=== PATIENT | female | born 1945 | race Caucasian/White ===

== ENCOUNTER 2021-05-27 13:05 | Inpatient (IN) ==
[2021-05-28] MEDS ORDERED: Furosemide 20 MG TABLET PO PRN (16:53)
[2021-05-28] MEDS ORDERED: Warfarin perPT PO PRN (18:00)
[2021-05-28] MEDS: Carbidopa/Levodopa ER 50/200 TABLET PO SCH (23:31)
[2021-05-28] MEDS: *HR* Enoxaparin 150 MG/ML SYRINGE SQ SCH (23:31)
[2021-05-28] MEDS: Amoxicillin 500 MG CAPSULE PO SCH (23:31)
[2021-05-28] MEDS: PrednisoLONE Acetate 1% Opth 5 ML BOTTLE RIGHT EYE SCH ×2 (23:33)
[2021-05-29 07:56] LABS: Basophils % 0.5 %; Eosinophils # 0.1 K/mcL (0.0-0.6); Eosinophils % 1.3 %; Hematocrit 30.5 % (35.3-44.9); Immature Granulocytes % 1.6 % (0-4); Lymphocytes # 1.1 K/mcL (0.6-4.6); Lymphocytes % 17.5 %; Mean Corpuscular HGB Conc 29.5 g/dL (31.6-35.5); Mean Corpuscular Hemoglobin 28.3 pg (28.0-33.3); Mean Corpuscular Volume 95.9 fL (83.0-100.0); Mean Platelet Volume 9.6 fL (9.4-12.4); Monocytes # 0.6 K/mcL (0.0-1.3); Monocytes % 9.8 %; Neutrophils # 4.4 K/mcL (1.6-8.9); Platelet Count 365 K/mcL (140-400); Red Blood Count 3.18 M/mcL (3.82-4.97); Red Cell Distribution Width 15.4 % (11.5-14.5); Segmented Neutrophils % 69.3 %; White Blood Count 6.3 K/mcL (4.3-11.1)
[2021-05-29] MEDS: Amoxicillin 500 MG CAPSULE PO SCH ×3 (08:12→20:36)
[2021-05-29] MEDS: Carbidopa/Levodopa ER 50/200 TABLET PO SCH ×2 (08:13→20:36)
[2021-05-29] MEDS: *HR* Enoxaparin 150 MG/ML SYRINGE SQ SCH (08:13)
[2021-05-29] MEDS: PrednisoLONE Acetate 1% Opth 5 ML BOTTLE RIGHT EYE SCH ×4 (08:14→20:35)
[2021-05-29 08:17] LABS: BUN/Creatinine Ratio 12 (6-26); Blood Urea Nitrogen 10 mg/dL (8-23); Calcium 10.5 mg/dL (8.6-10.3); Carbon Dioxide 37 mEq/L (23-29); Chloride 102 mEq/L (98-107); Glucose 102 mg/dL (70-105); Osmolality,Calculated 291 (280-300); Potassium 3.8 mEq/L (3.5-5.1); Sodium 141 mEq/L (136-145); eGFR For African Americans > 60 (> 60); eGFR For Non-African Americans > 60 (> 60)
[2021-05-29 08:24] LABS: Prothrombin Time 22.3 Seconds (9.4-12.1)
[2021-05-29] MEDS ORDERED: Warfarin perPT PO SCH (09:00)
[2021-05-29] MEDS: Aspirin Enteric Coated 81 MG Tablet PO SCH (10:08)
[2021-05-29] MEDS: allopurinoL 300 MG TABLET PO SCH (10:08)
[2021-05-29] MEDS: *HR* Amiodarone 200 MG TABLET PO SCH (10:08)
[2021-05-29] MEDS: Cholecalciferol (D-3) 1,000 UNIT (25MCG) TABLET PO SCH (10:08)
[2021-05-29] MEDS: Moxifloxacin OPTH Drops 3 ML BOTTLE RIGHT EYE SCH ×4 (10:09→20:36)
[2021-05-29] MEDS ORDERED: *HR* Warfarin 3 MG TABLET PO ONE (18:00)
[2021-05-30 06:57] LABS: Prothrombin Time 22.1 Seconds (9.4-12.1)
[2021-05-30] MEDS: *HR* HYDROcodone/Acet 5/325 mg TABLET PO PRN (09:46)
[2021-05-30] MEDS: Carbidopa/Levodopa ER 50/200 TABLET PO SCH ×2 (09:47→19:49)
[2021-05-30] MEDS: allopurinoL 300 MG TABLET PO SCH (09:47)
[2021-05-30] MEDS: Cholecalciferol (D-3) 1,000 UNIT (25MCG) TABLET PO SCH (09:47)
[2021-05-30] MEDS: Aspirin Enteric Coated 81 MG Tablet PO SCH (09:47)
[2021-05-30] MEDS: *HR* Amiodarone 200 MG TABLET PO SCH (09:47)
[2021-05-30] MEDS: Amoxicillin 500 MG CAPSULE PO SCH ×3 (09:47→19:49)
[2021-05-30] MEDS: Moxifloxacin OPTH Drops 3 ML BOTTLE RIGHT EYE SCH ×6 (09:51→20:43)
[2021-05-30] MEDS: PrednisoLONE Acetate 1% Opth 5 ML BOTTLE RIGHT EYE SCH ×6 (09:51→20:42)
[2021-05-31 07:02] LABS: INR 2.1; Prothrombin Time 23.7 Seconds (9.4-12.1)
[2021-05-31] MEDS: allopurinoL 300 MG TABLET PO SCH (10:06)
[2021-05-31] MEDS: Amoxicillin 500 MG CAPSULE PO SCH ×3 (10:06→21:30)
[2021-05-31] MEDS: Aspirin Enteric Coated 81 MG Tablet PO SCH (10:06)
[2021-05-31] MEDS: Carbidopa/Levodopa ER 50/200 TABLET PO SCH ×2 (10:07→21:31)
[2021-05-31] MEDS: *HR* Amiodarone 200 MG TABLET PO SCH (10:07)
[2021-05-31] MEDS: Cholecalciferol (D-3) 1,000 UNIT (25MCG) TABLET PO SCH (10:07)
[2021-05-31] MEDS: Moxifloxacin OPTH Drops 3 ML BOTTLE RIGHT EYE SCH ×4 (10:08→21:37)
[2021-05-31] MEDS: PrednisoLONE Acetate 1% Opth 5 ML BOTTLE RIGHT EYE SCH ×6 (10:08→21:56)
[2021-05-31] MEDS ORDERED: *HR* Warfarin 1 MG TABLET PO ONE (18:00)
[2021-05-31] MEDS: *HR* HYDROcodone/Acet 5/325 mg TABLET PO PRN (21:30)
[2021-06-01 07:39] LABS: INR 1.6; Prothrombin Time 18.3 Seconds (9.4-12.1)
[2021-06-01] MEDS: Moxifloxacin OPTH Drops 3 ML BOTTLE RIGHT EYE SCH ×4 (09:40→20:25)
[2021-06-01] MEDS: PrednisoLONE Acetate 1% Opth 5 ML BOTTLE RIGHT EYE SCH ×4 (09:41→20:25)
[2021-06-01] MEDS: Carbidopa/Levodopa ER 50/200 TABLET PO SCH ×2 (09:42→20:12)
[2021-06-01] MEDS: Amoxicillin 500 MG CAPSULE PO SCH ×3 (09:42→20:13)
[2021-06-01] MEDS: allopurinoL 300 MG TABLET PO SCH (09:42)
[2021-06-01] MEDS: *HR* Amiodarone 200 MG TABLET PO SCH (09:42)
[2021-06-01] MEDS: Aspirin Enteric Coated 81 MG Tablet PO SCH (09:42)
[2021-06-01] MEDS: Cholecalciferol (D-3) 1,000 UNIT (25MCG) TABLET PO SCH (09:42)
[2021-06-01] MEDS ORDERED: *HR* Warfarin 2.5 MG TABLET PO ONE (18:00)
[2021-06-01] MEDS: *HR* HYDROcodone/Acet 5/325 mg TABLET PO PRN (20:13)
[2021-06-02 07:27] LABS: INR 1.6; Prothrombin Time 17.9 Seconds (9.4-12.1)
[2021-06-02] MEDS: Amoxicillin 500 MG CAPSULE PO SCH ×3 (08:43→20:47)
[2021-06-02] MEDS: Cholecalciferol (D-3) 1,000 UNIT (25MCG) TABLET PO SCH (08:44)
[2021-06-02] MEDS: PrednisoLONE Acetate 1% Opth 5 ML BOTTLE RIGHT EYE SCH ×3 (08:44→17:08)
[2021-06-02] MEDS: Carbidopa/Levodopa ER 50/200 TABLET PO SCH ×2 (08:45→20:47)
[2021-06-02] MEDS: Moxifloxacin OPTH Drops 3 ML BOTTLE RIGHT EYE SCH ×4 (08:45→20:49)
[2021-06-02] MEDS: *HR* Amiodarone 200 MG TABLET PO SCH (08:45)
[2021-06-02] MEDS: Aspirin Enteric Coated 81 MG Tablet PO SCH (08:45)
[2021-06-02] MEDS: allopurinoL 300 MG TABLET PO SCH (08:45)
[2021-06-02 08:48] LABS: Basophils % 0.4 %; Eosinophils # 0.1 K/mcL (0.0-0.6); Eosinophils % 1.4 %; Hemoglobin 9.5 g/dL (11.5-15.4); Immature Granulocytes % 0.4 % (0-4); Lymphocytes % 12.5 %; Mean Corpuscular HGB Conc 29.7 g/dL (31.6-35.5); Mean Corpuscular Hemoglobin 28.4 pg (28.0-33.3); Mean Corpuscular Volume 95.5 fL (83.0-100.0); Mean Platelet Volume 8.9 fL (9.4-12.4); Monocytes # 0.5 K/mcL (0.0-1.3); Monocytes % 5.9 %; Neutrophils # 6.1 K/mcL (1.6-8.9); Platelet Count 479 K/mcL (140-400); Red Blood Count 3.35 M/mcL (3.82-4.97); Red Cell Distribution Width 15.3 % (11.5-14.5); Segmented Neutrophils % 79.4 %; White Blood Count 7.7 K/mcL (4.3-11.1)
[2021-06-02 09:07] LABS: BUN/Creatinine Ratio 17 (6-26); Blood Urea Nitrogen 15 mg/dL (8-23); Calcium 10.3 mg/dL (8.6-10.3); Carbon Dioxide 39 mEq/L (23-29); Chloride 99 mEq/L (98-107); Glucose 96 mg/dL (70-105); Osmolality,Calculated 291 (280-300); Potassium 4.2 mEq/L (3.5-5.1); Sodium 140 mEq/L (136-145); eGFR For African Americans > 60 (> 60); eGFR For Non-African Americans > 60 (> 60)
[2021-06-02] MEDS: Sennosides/Docusate Sodium TABLET PO PRN (12:36)
[2021-06-02] MEDS ORDERED: *HR* Warfarin 3 MG TABLET PO ONE (18:00)
[2021-06-02] MEDS: Budesonide/Formoterol 160/4.5 1 PUFF INH IH SCH (23:39)
[2021-06-03 07:41] LABS: INR 1.6; Prothrombin Time 17.3 Seconds (9.4-12.1)
[2021-06-03] MEDS: allopurinoL 300 MG TABLET PO SCH (08:08)
[2021-06-03] MEDS: Carbidopa/Levodopa ER 50/200 TABLET PO SCH ×2 (08:09→22:16)
[2021-06-03] MEDS: Aspirin Enteric Coated 81 MG Tablet PO SCH (08:09)
[2021-06-03] MEDS: *HR* Amiodarone 200 MG TABLET PO SCH (08:09)
[2021-06-03] MEDS: Sennosides/Docusate Sodium TABLET PO PRN (08:09)
[2021-06-03] MEDS: Cholecalciferol (D-3) 1,000 UNIT (25MCG) TABLET PO SCH (08:09)
[2021-06-03] MEDS: Moxifloxacin OPTH Drops 3 ML BOTTLE RIGHT EYE SCH ×4 (08:16→22:17)
[2021-06-03] MEDS: PrednisoLONE Acetate 1% Opth 5 ML BOTTLE RIGHT EYE SCH ×4 (08:16→22:17)
[2021-06-03] MEDS: Budesonide/Formoterol 160/4.5 1 PUFF INH IH SCH ×2 (08:55→21:11)
[2021-06-03] MEDS ORDERED: *HR* Warfarin 5 MG TABLET PO ONE (18:00)
[2021-06-03] MEDS: *HR* HYDROcodone/Acet 5/325 mg TABLET PO PRN (22:23)
[2021-06-04] MEDS: Aspirin Enteric Coated 81 MG Tablet PO SCH (08:11)
[2021-06-04] MEDS: allopurinoL 300 MG TABLET PO SCH (08:11)
[2021-06-04] MEDS: Cholecalciferol (D-3) 1,000 UNIT (25MCG) TABLET PO SCH (08:11)
[2021-06-04] MEDS: Carbidopa/Levodopa ER 50/200 TABLET PO SCH ×2 (08:11→21:36)
[2021-06-04] MEDS: *HR* Amiodarone 200 MG TABLET PO SCH (08:11)
[2021-06-04] MEDS: PrednisoLONE Acetate 1% Opth 5 ML BOTTLE RIGHT EYE SCH ×4 (08:11→21:36)
[2021-06-04] MEDS: Moxifloxacin OPTH Drops 3 ML BOTTLE RIGHT EYE SCH ×4 (08:12→21:36)
[2021-06-04] MEDS: Budesonide/Formoterol 160/4.5 1 PUFF INH IH SCH ×2 (08:38→22:32)
[2021-06-04 11:19] LABS: INR 1.7; Prothrombin Time 19.2 Seconds (9.4-12.1)
[2021-06-04] MEDS ORDERED: *HR* Warfarin 5 MG TABLET PO ONE (18:00)
[2021-06-04] MEDS: Furosemide 40 MG TABLET PO SCH (18:18)
[2021-06-05 07:48] LABS: INR 2.2; Prothrombin Time 24.5 Seconds (9.4-12.1)
[2021-06-05] MEDS: Aspirin Enteric Coated 81 MG Tablet PO SCH (08:27)
[2021-06-05] MEDS: allopurinoL 300 MG TABLET PO SCH (08:28)
[2021-06-05] MEDS: Carbidopa/Levodopa ER 50/200 TABLET PO SCH ×2 (08:28→19:58)
[2021-06-05] MEDS: Furosemide 40 MG TABLET PO SCH (08:28)
[2021-06-05] MEDS: Cholecalciferol (D-3) 1,000 UNIT (25MCG) TABLET PO SCH (08:28)
[2021-06-05] MEDS: PrednisoLONE Acetate 1% Opth 5 ML BOTTLE RIGHT EYE SCH ×4 (08:29→19:59)
[2021-06-05] MEDS: Moxifloxacin OPTH Drops 3 ML BOTTLE RIGHT EYE SCH ×4 (08:29→20:00)
[2021-06-05] MEDS: Budesonide/Formoterol 160/4.5 1 PUFF INH IH SCH ×3 (08:30→21:13)
[2021-06-05] MEDS ORDERED: *HR* Warfarin 3 MG TABLET PO ONE (18:00)
[2021-06-06 07:39] LABS: INR 2.5; Prothrombin Time 28.2 Seconds (9.4-12.1)
[2021-06-06] MEDS: PrednisoLONE Acetate 1% Opth 5 ML BOTTLE RIGHT EYE SCH ×4 (07:49→20:48)
[2021-06-06] MEDS: Aspirin Enteric Coated 81 MG Tablet PO SCH (07:49)
[2021-06-06] MEDS: allopurinoL 300 MG TABLET PO SCH (07:49)
[2021-06-06] MEDS: Carbidopa/Levodopa ER 50/200 TABLET PO SCH ×2 (07:49→20:48)
[2021-06-06] MEDS: Cholecalciferol (D-3) 1,000 UNIT (25MCG) TABLET PO SCH (07:49)
[2021-06-06] MEDS: Furosemide 40 MG TABLET PO SCH (07:50)
[2021-06-06] MEDS: Moxifloxacin OPTH Drops 3 ML BOTTLE RIGHT EYE SCH ×4 (07:50→20:48)
[2021-06-06] MEDS: *HR* Amiodarone 200 MG TABLET PO SCH (07:50)
[2021-06-06] MEDS: Budesonide/Formoterol 160/4.5 1 PUFF INH IH SCH ×2 (09:53→21:59)
[2021-06-06] MEDS ORDERED: *HR* Warfarin 3 MG TABLET PO ONE (18:00)
[2021-06-07] MEDS: Aspirin Enteric Coated 81 MG Tablet PO SCH (08:23)
[2021-06-07] MEDS: Cholecalciferol (D-3) 1,000 UNIT (25MCG) TABLET PO SCH (08:23)
[2021-06-07] MEDS: Carbidopa/Levodopa ER 50/200 TABLET PO SCH ×2 (08:23→20:51)
[2021-06-07] MEDS: allopurinoL 300 MG TABLET PO SCH (08:23)
[2021-06-07] MEDS: PrednisoLONE Acetate 1% Opth 5 ML BOTTLE RIGHT EYE SCH ×4 (08:24→20:51)
[2021-06-07] MEDS: *HR* Amiodarone 200 MG TABLET PO SCH (08:24)
[2021-06-07] MEDS: Furosemide 40 MG TABLET PO SCH (08:24)
[2021-06-07] MEDS: Moxifloxacin OPTH Drops 3 ML BOTTLE RIGHT EYE SCH ×4 (08:24→20:51)
[2021-06-07 08:25] LABS: INR 2.7; Prothrombin Time 29.4 Seconds (9.4-12.1)
[2021-06-07] MEDS: Budesonide/Formoterol 160/4.5 1 PUFF INH IH SCH ×2 (09:16→21:35)
[2021-06-07] MEDS ORDERED: *HR* Warfarin 2 MG TABLET PO ONE (18:00)
[2021-06-08] MEDS: Budesonide/Formoterol 160/4.5 1 PUFF INH IH SCH ×2 (07:56→22:15)
[2021-06-08] MEDS: Cholecalciferol (D-3) 1,000 UNIT (25MCG) TABLET PO SCH (08:42)
[2021-06-08] MEDS: allopurinoL 300 MG TABLET PO SCH (08:42)
[2021-06-08] MEDS: *HR* Amiodarone 200 MG TABLET PO SCH (08:42)
[2021-06-08] MEDS: Furosemide 40 MG TABLET PO SCH (08:43)
[2021-06-08] MEDS: Carbidopa/Levodopa ER 50/200 TABLET PO SCH ×2 (08:43→20:37)
[2021-06-08] MEDS: PrednisoLONE Acetate 1% Opth 5 ML BOTTLE RIGHT EYE SCH ×4 (08:43→20:37)
[2021-06-08] MEDS: Moxifloxacin OPTH Drops 3 ML BOTTLE RIGHT EYE SCH ×4 (08:43→20:37)
[2021-06-08] MEDS: Aspirin Enteric Coated 81 MG Tablet PO SCH (08:43)
[2021-06-08 08:45] LABS: Hematocrit 33.6 % (35.3-44.9); Mean Corpuscular HGB Conc 29.8 g/dL (31.6-35.5); Mean Corpuscular Hemoglobin 28.6 pg (28.0-33.3); Mean Platelet Volume 9.5 fL (9.4-12.4); Platelet Count 448 K/mcL (140-400); Red Cell Distribution Width 15.3 % (11.5-14.5); White Blood Count 6.2 K/mcL (4.3-11.1)
[2021-06-08 08:49] LABS: INR 2.4; Prothrombin Time 26.1 Seconds (9.4-12.1)
[2021-06-08 08:58] LABS: BUN/Creatinine Ratio 22 (6-26); Blood Urea Nitrogen 23 mg/dL (8-23); Calcium 10.5 mg/dL (8.6-10.3); Carbon Dioxide 36 mEq/L (23-29); Chloride 98 mEq/L (98-107); Glucose 106 mg/dL (70-105); Osmolality,Calculated 292 (280-300); Potassium 4.2 mEq/L (3.5-5.1); Sodium 139 mEq/L (136-145); eGFR For African Americans > 60 (> 60); eGFR For Non-African Americans 51 (> 60)
[2021-06-08] MEDS ORDERED: *HR* Warfarin 3 MG TABLET PO ONE (18:00)
[2021-06-09 06:50] LABS: INR 2.2; Prothrombin Time 24.3 Seconds (9.4-12.1)
[2021-06-09] MEDS: Budesonide/Formoterol 160/4.5 1 PUFF INH IH SCH ×2 (08:06→20:44)
[2021-06-09] MEDS: allopurinoL 300 MG TABLET PO SCH (09:00)
[2021-06-09] MEDS: Carbidopa/Levodopa ER 50/200 TABLET PO SCH ×2 (09:00→21:03)
[2021-06-09] MEDS: Cholecalciferol (D-3) 1,000 UNIT (25MCG) TABLET PO SCH (09:00)
[2021-06-09] MEDS: *HR* Amiodarone 200 MG TABLET PO SCH (09:00)
[2021-06-09] MEDS: Furosemide 40 MG TABLET PO SCH (09:00)
[2021-06-09] MEDS: PrednisoLONE Acetate 1% Opth 5 ML BOTTLE RIGHT EYE SCH ×4 (09:02→21:04)
[2021-06-09] MEDS: Moxifloxacin OPTH Drops 3 ML BOTTLE RIGHT EYE SCH ×4 (09:02→21:04)
[2021-06-09] MEDS: Aspirin Enteric Coated 81 MG Tablet PO SCH (09:41)
[2021-06-09] MEDS ORDERED: *HR* Warfarin 3 MG TABLET PO ONE (18:00)
[2021-06-10 07:52] LABS: INR 2.4; Prothrombin Time 26.8 Seconds (9.4-12.1)
[2021-06-10] MEDS: PrednisoLONE Acetate 1% Opth 5 ML BOTTLE RIGHT EYE SCH ×4 (08:51→20:09)
[2021-06-10] MEDS: Moxifloxacin OPTH Drops 3 ML BOTTLE RIGHT EYE SCH ×4 (08:51→20:10)
[2021-06-10] MEDS: Aspirin Enteric Coated 81 MG Tablet PO SCH (08:53)
[2021-06-10] MEDS: Cholecalciferol (D-3) 1,000 UNIT (25MCG) TABLET PO SCH (08:53)
[2021-06-10] MEDS: Furosemide 40 MG TABLET PO SCH (08:54)
[2021-06-10] MEDS: Carbidopa/Levodopa ER 50/200 TABLET PO SCH ×2 (08:54→20:09)
[2021-06-10] MEDS: allopurinoL 300 MG TABLET PO SCH (08:54)
[2021-06-10] MEDS: *HR* Amiodarone 200 MG TABLET PO SCH (08:54)
[2021-06-10] MEDS: Budesonide/Formoterol 160/4.5 1 PUFF INH IH SCH ×2 (09:22→21:52)
[2021-06-10] MEDS: Sennosides/Docusate Sodium TABLET PO PRN (10:32)
[2021-06-10] MEDS ORDERED: *HR* Warfarin 3 MG TABLET PO ONE (18:00)
[2021-06-11 07:46] LABS: INR 2.5; Prothrombin Time 27.8 Seconds (9.4-12.1)
[2021-06-11] MEDS: Moxifloxacin OPTH Drops 3 ML BOTTLE RIGHT EYE SCH ×4 (08:27→20:57)
[2021-06-11] MEDS: PrednisoLONE Acetate 1% Opth 5 ML BOTTLE RIGHT EYE SCH ×4 (08:28→20:58)
[2021-06-11] MEDS: Cholecalciferol (D-3) 1,000 UNIT (25MCG) TABLET PO SCH (08:30)
[2021-06-11] MEDS: allopurinoL 300 MG TABLET PO SCH (08:30)
[2021-06-11] MEDS: Carbidopa/Levodopa ER 50/200 TABLET PO SCH ×2 (08:30→20:57)
[2021-06-11] MEDS: Aspirin Enteric Coated 81 MG Tablet PO SCH (08:30)
[2021-06-11] MEDS: Furosemide 40 MG TABLET PO SCH (08:30)
[2021-06-11] MEDS: *HR* Amiodarone 200 MG TABLET PO SCH (08:31)
[2021-06-11] MEDS: Budesonide/Formoterol 160/4.5 1 PUFF INH IH SCH ×2 (10:26→20:34)
[2021-06-11] MEDS ORDERED: *HR* Warfarin 3 MG TABLET PO ONE (18:00)
[2021-06-12 07:32] LABS: INR 2.8; Prothrombin Time 30.5 Seconds (9.4-12.1)
[2021-06-12] MEDS: Aspirin Enteric Coated 81 MG Tablet PO SCH (09:05)
[2021-06-12] MEDS: Cholecalciferol (D-3) 1,000 UNIT (25MCG) TABLET PO SCH (09:05)
[2021-06-12] MEDS: *HR* Amiodarone 200 MG TABLET PO SCH (09:05)
[2021-06-12] MEDS: allopurinoL 300 MG TABLET PO SCH (09:05)
[2021-06-12] MEDS: Carbidopa/Levodopa ER 50/200 TABLET PO SCH ×2 (09:05→20:21)
[2021-06-12] MEDS: PrednisoLONE Acetate 1% Opth 5 ML BOTTLE RIGHT EYE SCH ×4 (09:06→20:24)
[2021-06-12] MEDS: Furosemide 40 MG TABLET PO SCH (09:06)
[2021-06-12] MEDS: Moxifloxacin OPTH Drops 3 ML BOTTLE RIGHT EYE SCH ×4 (09:06→20:24)
[2021-06-12] MEDS: Budesonide/Formoterol 160/4.5 1 PUFF INH IH SCH ×2 (09:29→22:20)
[2021-06-12] MEDS ORDERED: *HR* Warfarin 2 MG TABLET PO ONE (18:00)
[2021-06-13 07:04] LABS: INR 2.7; Prothrombin Time 30.1 Seconds (9.4-12.1)
[2021-06-13 07:06] VITALS: BP 145/81; PULSE 61; TEMP 98.2; O2SAT 93
[2021-06-13] MEDS: Aspirin Enteric Coated 81 MG Tablet PO SCH (08:22)
[2021-06-13] MEDS: *HR* Amiodarone 200 MG TABLET PO SCH (08:22)
[2021-06-13] MEDS: Furosemide 40 MG TABLET PO SCH (08:22)
[2021-06-13] MEDS: allopurinoL 300 MG TABLET PO SCH (08:22)
[2021-06-13] MEDS: Cholecalciferol (D-3) 1,000 UNIT (25MCG) TABLET PO SCH (08:22)
[2021-06-13] MEDS: Carbidopa/Levodopa ER 50/200 TABLET PO SCH (08:22)
[2021-06-13] MEDS: PrednisoLONE Acetate 1% Opth 5 ML BOTTLE RIGHT EYE SCH (08:23)
[2021-06-13] MEDS: Moxifloxacin OPTH Drops 3 ML BOTTLE RIGHT EYE SCH (08:23)
[2021-06-13] MEDS: Budesonide/Formoterol 160/4.5 1 PUFF INH IH SCH (09:49)
[2021-06-13 09:52] VITALS: RESP 18
== END 2021-06-13 11:00 | disposition home health service (06) ==
LOC: INPPIK 05-28 19:07
PROVIDERS: ADMIT Family Medicine; ATTEND Family Medicine